=== PATIENT | male | born 1990 | race Caucasian/White ===

== ENCOUNTER 2017-11-21 20:55 | Outpatient (CLI) | payer BC ==
--- NOTE | 2017-11-22 09:46 | Ultrasound Report ---
ULTRASOUND MEDIAL LEFT CALF: 11/21/2017 CLINICAL INDICATION: Palpable abnormality. 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 FINDINGS: Ultrasound of the palpable abnormality identified by the patient was performed. At this site, there is a possible intramuscular hematoma, measuring 3.3 x 2.1 x 1.5 cm. No internal flow is seen. IMPRESSION: POSSIBLE INTRAMUSCULAR HEMATOMA AT THE SITE OF THE PALPABLE SWELLING. IF CLINICAL CONCERN PERSISTS, MRI MAY BE HELPFUL. TD: 11/22/2017 09:11
== END 2017-11-21 20:56 | disposition home or self-care (01) ==
LOC: DI 20:55
PROVIDERS: ATTEND Family Medicine
DX: M79.89 Other specified soft tissue disorders (principal)
CPT/HCPCS: 76882

== ENCOUNTER 2020-09-21 11:52 | Emergency (ER) | payer OTHER ==
[2020-09-21] MEDS ORDERED: PROPARACAINE 0.5% OPHTH DROPS 15 ML EACHEYE STA (12:36)
--- NOTE | 2020-09-21 12:52 | ED Physician Documentation ---
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 Does not wear contacts. Review of Systems Constitutional: reports: Reviewed and negative Eyes: reports: Reviewed and negative Ears: reports: Reviewed and negative Nose: reports: Reviewed and negative PD PAST MEDICAL HISTORY - Past Surgical History Past Surgical History: No - Present Medications Home Medications: Ambulatory Orders Medication Instructions Recorded Confirmed No Known Home Medications 09/21/20 09/21/20 - Allergies Allergies/Adverse Reactions: Allergies Allergy/AdvReac Type Severity Reaction Status Date / Time No Known Drug Allergies Allergy Verified 09/21/20 12:16 - Social History Does the pt smoke?: No Smoking Status: Never smoker Does the pt drink ETOH?: No Does the pt have substance abuse?: No PD ED PE NORMAL - Vitals Vital signs reviewed: Yes - General General: Alert and oriented X 3, No acute distress - HEENT HEENT: PERRL, EOMI, Other (He was completely better after proparacaine. I am unable to visualize a foreign body on the cornea, conjunctiva, or in the fornices. There is no fluorescein uptake.) - Neuro Neuro: Alert and oriented X 3, Normal speech Results - Vitals Vitals: Vital Signs - 24 hr 09/21/20 09/21/20 12:16 13:07 Temperature 36.8 C 36.9 C Heart Rate 60 57 L Respiratory 16 20 Rate Blood Pressure 134/64 H 140/67 H O2 Saturation 98 98 Oxygen O2 Source Room air PD MEDICAL DECISION MAKING - ED course ED course: I did not find any foreign body in the conjunctiva or in the cornea. There is no fluorescein uptake so we irrigated the eye and then let him sit for about half an hour to let the proparacaine wore off and subsequent to that he had no residual foreign body sensation. Departure - Departure Disposition: 01 Home, Self Care Clinical Impression: Foreign body in eye Qualifiers: Encounter type: initial encounter Laterality: right Qualified Code(s): T15.91XA - Foreign body on external eye, part unspecified, right eye, initial encounter Condition: Good Record reviewed to determine appropriate education?: Yes Instructions: ED Eye Particle Conjunctiva FB Rslv Comments: Return if symptoms recur.
[2020-09-21 13:07] VITALS: BP 140/67
== END 2020-09-21 13:32 | disposition home or self-care (01) ==
LOC: ED 11:52
DX: T15.91XA Foreign body on external eye, part unspecified, right eye, initial encounter (principal); X58.XXXA Exposure to other specified factors, initial encounter; Y99.0 Civilian activity done for income or pay
CPT/HCPCS: 1040M; 99282; J3490

== ENCOUNTER 2023-05-21 12:07 | Emergency (ER) | payer BC, OTHER ==
[2023-05-21] MEDS ORDERED: TETANUS/DIPHTHERIA/PERTUSSIS 0.5 ML SYRINGE IM ONE (12:24)
[2023-05-21] MEDS ORDERED: BUFFERED LIDOCAINE 10 ML SYRINGE SUBQ STA (12:24)
[2023-05-21 12:25] VITALS: BP 143/84; O2SAT 98
--- NOTE | 2023-05-21 12:25 | ED Physician Documentation ---
PD HPI UPPER EXT INJURY - Stated complaint Stated Complaint: LT FINGER INJ - Chief complaint Chief Complaint: Laceration - History obtained from History obtained from: Patient (Right-handed gentleman who is not up-to-date on tetanus cut his left index finger on a sharp piece of metal at work just prior to arrival.) PD PAST MEDICAL HISTORY - Past Medical History Past Medical History: No - Past Surgical History Past Surgical History: No Ortho: Other - Present Medications Home Medications: Ambulatory Orders Medication Instructions Recorded Confirmed No Known Home Medications 09/21/20 05/21/23 - Allergies Allergies/Adverse Reactions: Allergies Allergy/AdvReac Type Severity Reaction Status Date / Time No Known Drug Allergies Allergy Verified 05/21/23 12:20 - Social History Does the pt smoke?: No Smoking Status: Never smoker Does the pt drink ETOH?: No Does the pt have substance abuse?: No - Immunizations Immunizations are current?: No - POLST Patient has POLST: No PD ED PE NORMAL - Vitals Vital signs reviewed: Yes - General General: Alert and oriented X 3, No acute distress - Extremities Extremities: Other (Slightly greater than 1 cm laceration on the dorsal surface of the left index finger just distal to the MCP over the proximal phalanx. Longitudinal for the most part and orientation without distal neurovascular compromise.) - Neuro Neuro: Alert and oriented X 3, Normal speech Results - Vitals Vitals: Vital Signs - 24 hr 05/21/23 12:16 Temperature 37.4 C Heart Rate 76 Respiratory 15 Rate Blood Pressure 143/84 H O2 Saturation 98 Oxygen O2 Source Room air Procedures - Laceration (location) Left 2nd finger Length in cm: 1 Wound type: Linear, Into subcut fat Neurovascular status: Sensory intact, Motor intact Tendon involvement: Tendon intact Anesthesia: Lidocaine 1%, With bicarb Wound preparation: Irrigated copiously NS Skin layer closure: Nylon, Interrupted, Size #-0 - enter number (4-0), Sutures - enter # (3) Other: Patient tolerated well, No complications, Neurovascular intact, Tetanus booster given PD Medical Decision Making - ED course Complexity details: other (L&I paperwork [id number] completed and submitted) Departure - Departure Disposition: 01 Home, Self Care Clinical Impression: Laceration of left index finger Qualifiers: Encounter type: initial encounter Damage to nail status: without damage Foreign body presence: without foreign body Qualified Code(s): S61.211A - Laceration without foreign body of left index finger without damage to nail, initial encounter Condition: Good Record reviewed to determine appropriate education?: Yes Instructions: ED Laceration Hand Comments: Come back for any signs of infection which would include: Redness, swelling, drainage, increased pain, or fevers. You can wash it soap and water. Keep it covered and moist with bacitracin ointment which is available over the counter; avoid neosporin. Follow-up with your physician in about 14 days for suture removal. Forms: PCP List
== END 2023-05-21 12:43 | disposition home or self-care (01) ==
LOC: ED 12:07
DX: S61.211A Laceration without foreign body of left index finger without damage to nail, initial encounter (principal); W26.8XXA Contact with other sharp object(s), not elsewhere classified, initial encounter; Y92.69 Other specified industrial and construction area as the place of occurrence of the external cause; Y99.0 Civilian activity done for income or pay
CPT/HCPCS: 1040M; 12001; 90471; 90715; 99282

== ENCOUNTER 2024-02-21 08:16 | Outpatient (CLI) | payer OTHER ==
--- NOTE | 2024-02-21 08:52 | XRAY Report ---
PROCEDURE: Knee 3V RT INDICATIONS: KNEE PAIN TECHNIQUE: 4 views of the knee(s) were acquired. COMPARISON: None. FINDINGS: Bones: No fractures or dislocations. No suspicious bony lesions. Mild degenerative change. Soft tissues: No knee joint effusion. No suspicious soft tissue calcifications or masses. IMPRESSION: Mild degenerative change. No acute bony abnormality. Reviewed by: Enio Garsia MD on 02/21/2024 8:51 AM PDT Approved by: Enio Garsia MD on 02/21/2024 8:51 AM PDT Station ID: [id number]
== END 2024-02-21 08:17 | disposition home or self-care (01) ==
LOC: DI 08:16
DX: M17.11 Unilateral primary osteoarthritis, right knee (principal)